=== PATIENT | female | born 1960 | race Two or more races ===

== ENCOUNTER 2024-11-19 05:00 | Day surgery (SDC) | payer OTHER ==
[2024-11-13 11:11] VITALS: BP 134/85
[~2024-11-19] VITALS: Ht 157.5 cm; Wt 64.4 kg
[~2024-11-19 05:00] MED LIST: AMBIEN5 MG; LEVOTHYROXINE25 MCG; SIMVASTATIN5 MG
== END 2024-11-19 09:25 | disposition home or self-care (01) ==
LOC: CIR.AMB 05:00
PROVIDERS: ATTEND Surgery Surgery of the Hand
DX: M67.843 Other specified disorders of tendon, right hand (principal)